=== PATIENT | male | born 1985 | race American Indian/Alaskan Native ===

== ENCOUNTER 2017-05-13 02:40 | Emergency (ER) | payer OTHER ==
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
[2017-05-13] MEDS ORDERED: TORADOL IM ONE (05:39)
[2017-05-13 07:08] VITALS: BP 114/65
== END 2017-05-13 07:22 | disposition home or self-care (01) ==
LOC: ED 02:40
DX: M54.12 Radiculopathy, cervical region (principal); S46.911A Strain of unspecified muscle, fascia and tendon at shoulder and upper arm level, right arm, initial encounter; V89.2XXA Person injured in unspecified motor-vehicle accident, traffic, initial encounter; Y93.89 Activity, other specified; Y92.89 Other specified places as the place of occurrence of the external cause; Y99.8 Other external cause status
CPT/HCPCS: 73030; 73070; 73100; 96372; 99283; J1885